=== PATIENT | female | born 1955 | race Caucasian/White ===

== ENCOUNTER → 2024-12-04 | Outpatient (REF) | payer MEDICARE ==
[~2024-12-04] MED LIST: ATOR40TA75 PO; CLON1TAB8 PO; LEVO100T5 PO; LEVO1TAB39 PO; METF-838 PO; METO1TAB33 PO; PERC5TAB12 PO; SEMA2PEN SUBQ; SERT50TA29 PO; TRAM50TA2 PO; XARE20TA PO
== END ==
LOC: EDSEX → M SMT 17:57
PROVIDERS: ATTEND Urology
DX: R31.0 Gross hematuria (principal)

== ENCOUNTER 2024-12-05 08:52 | Observation (INO) | payer MEDICARE ==
[~2024-12-05] VITALS: Ht 157.5 cm; Wt 124.0 kg
[2024-12-05 11:20] LABS: BASO # 0.1 10^3/uL (0.0-0.2); BASO % 0.7 % (0.0-1.0); EOS # 0.3 10^3/uL (0.0-0.5); EOS % 2.5 % (0.0-3.0); LYMPH # 3.4 10^3/uL (1.5-5.0); LYMPH % 30.0 % (24.0-44.0); MONO # 1.0 10^3/uL (0.0-0.8); MONO % 8.8 % (2.0-8.0); NEUTROPHILS # 6.5 10^3/uL (1.5-8.5); NEUTROPHILS % 57.7 % (36.0-66.0); PLATELET COUNT, AUTOMATED 283 10^3/uL (150-450)
[2024-12-05 11:57] LABS: CALCIUM LEVEL 9.6 MG/DL (8.3-10.6); CARBON DIOXIDE LEVEL 28.0 MMOL/L (20-31); CHLORIDE LEVEL 105.0 MMOL/L (98-107); CREATININE FOR GFR 1.03 MG/DL (0.70-1.30); GLOMERULAR FILTRATION RATE 79.6 (>49); POTASSIUM SERUM 4.6 MMOL/L (3.5-5.1); SODIUM LEVEL 142.0 MMOL/L (136-145)
[2024-12-05 13:04] LABS: KETONE, URINE MANUAL REFLEX OBSCURED mg/dL (NEGATIVE); NITRITE, URINE MANUAL RFX OBSCURED (NEGATIVE); PROTEIN, URINE MANUAL REFLEX 3+ mg/dL (NEGATIVE); SP GRAVITY,URINE MANUAL REFLEX 1.025 (1.002-1.035); UROBILINOGEN, UA MANUAL REFLEX OBSCURED mg/dl (NORMAL)
[2024-12-05 13:05] LABS: RBC, URINE MAN REFLEX TNTC /hpf (0-3)
[2024-12-05 13:06] LABS: HYALINE CAST, URINE RFX NONE SEEN /lpf (0-1); MICROSCOPIC EXAM RFX PERFORMED; SQUAMOUS EPITHELIAL URINE RFX SMALL AMOUNT /hpf (SMALL AMT)
[2024-12-05] MEDS: ONDANSETRON 4MG 2ML VIAL IV ONE (13:31)
[2024-12-05] MEDS: NS (Normal Saline) 0.9% 1,000 ML IV ONE (13:31)
[2024-12-05] MEDS: KETOROLAC 30 MG/ML 1 ML VIAL IV ONE (13:34)
[2024-12-05 13:55] LABS: INR 1.13
[2024-12-05] MEDS ORDERED: SEMA2PEN SUBQ (14:30)
[2024-12-05] MEDS ORDERED: MED REC IN PROGRESS XX SCH (14:30)
[2024-12-05] MEDS ORDERED: SERT50TA29 PO (14:30)
[2024-12-05] MEDS ORDERED: METO1TAB33 PO (14:30)
[2024-12-05] MEDS ORDERED: XARE20TA PO (14:30)
[2024-12-05] MEDS ORDERED: ATOR40TA75 PO (14:30)
[2024-12-05] MEDS ORDERED: LEVO100T5 PO (14:30)
[2024-12-05] MEDS ORDERED: CLON1TAB8 PO (14:30)
[2024-12-05] MEDS ORDERED: TRAM50TA2 PO (14:30)
[2024-12-05] MEDS ORDERED: METF-838 PO (14:30)
[2024-12-05 15:19] LABS: ESTIMATED AVERAGE GLUCOSE 114.0 MG/DL (60-110)
[2024-12-05] MEDS: D5W/0.45% SODIUM CHLORIDE 1,000 ML IV SCH (16:21)
[2024-12-05] MEDS ORDERED: HOME MED LIST COMPLETE! XX SCH (16:30)
[2024-12-05] MEDS: NS (Normal Saline) 0.9% 1,000 ML IV SCH (16:42)
[2024-12-05] MEDS: ceFAZolin SODIUM 2 GM in DEXTROSE 5% (D5W) ADV/MINI-BAG 50 ML IV ONE (16:42)
[2024-12-05] MEDS ORDERED: ONDANSETRON 4MG 2ML VIAL As Ordered ONE (18:28)
[2024-12-05] MEDS ORDERED: LIDOCAINE 2% 100 MG/5 ML SDV (FOR ANES.) As Ordered ONE (18:28)
[2024-12-05] MEDS ORDERED: dexAMETHasone 4 MG/ML 1 ML VIAL As Ordered ONE (18:28)
[2024-12-05] MEDS ORDERED: KETOROLAC 30 MG/ML 1 ML VIAL As Ordered ONE (18:28)
[2024-12-05] MEDS ORDERED: MIDAZOLAM INJ 2 MG/2 ML VIAL As Ordered ONE (18:30)
[2024-12-05] MEDS: ISOVUE-300 61% 100 ML VIAL As Ordered ONE (19:23)
[2024-12-05 20:30] VITALS: BP 137/62; TEMP 97.4; O2SAT 94
[2024-12-05 21:00] VITALS: BP 134/84; TEMP 98.3; O2SAT 96
[2024-12-05 21:30] VITALS: BP 148/59; TEMP 98.3; O2SAT 96
[2024-12-05] MEDS ORDERED: clonazePAM 1 MG TAB PO PRN (22:10)
[2024-12-05 22:30] VITALS: BP 142/97; TEMP 98.1; O2SAT 97
[2024-12-05] MEDS: traMADol 50 MG TAB PO PRN (22:30)
[2024-12-05 23:30] VITALS: BP 140/80; TEMP 98.3; O2SAT 94
[2024-12-06] VITALS (7 sets, daily range): BP systolic 113–187; BP diastolic 77–114; TEMP 96.6–98.3; O2SAT 95–97
[2024-12-06] MEDS: LEVOTHYROXINE 100 MCG TABLET (0.1 MG) PO SCH (06:04)
[2024-12-06] MEDS: METOPROLOL SUCC. 100 MG *XL* TAB PO SCH (10:00)
[2024-12-06] MEDS: ATORVASTATIN 20 MG TAB PO SCH (10:01)
[2024-12-06] MEDS: SERTRALINE HCL 50 MG TAB PO SCH (10:02)
[2024-12-06] MEDS ORDERED: PERC5TAB12 PO (10:15)
[2024-12-06] MEDS ORDERED: LEVO1TAB39 PO (10:15)
== END 2024-12-06 12:40 | disposition home or self-care (01) ==
LOC: M ED 08:52 → M ED INP 08:53 → EDSEX 08:53 → M MS4PR 15:15
PROVIDERS: ADMIT General Practice; ATTEND General Practice
DX: N20.1 Calculus of ureter (principal); R31.9 Hematuria, unspecified; I48.91 Unspecified atrial fibrillation; E11.9 Type 2 diabetes mellitus without complications; E03.9 Hypothyroidism, unspecified; J44.9 Chronic obstructive pulmonary disease, unspecified; I10 Essential (primary) hypertension; E78.5 Hyperlipidemia, unspecified; G47.00 Insomnia, unspecified; F32.A Depression, unspecified; I34.1 Nonrheumatic mitral (valve) prolapse; E66.9 Obesity, unspecified; Z85.44 Personal history of malignant neoplasm of other female genital organs; Z87.442 Personal history of urinary calculi; Z90.79 Acquired absence of other genital organ(s); Z90.89 Acquired absence of other organs; Z90.49 Acquired absence of other specified parts of digestive tract; Z87.891 Personal history of nicotine dependence; J30.1 Allergic rhinitis due to pollen; Z88.8 Allergy status to other drugs, medicaments and biological substances; Z79.899 Other long term (current) drug therapy; Z79.01 Long term (current) use of anticoagulants; Z79.84 Long term (current) use of oral hypoglycemic drugs; Z79.890 Hormone replacement therapy
CPT/HCPCS: 52332; 71046; 76000; 76775; 80048; 81000; 81015; 83036; 85025; 85610; 85730; 87086; 93005; 96374; 96375; 99284; C1769; C2617; G0378; J0688; J0690; J1100; J1885; J2250; J2405; J3010; Q9967